=== PATIENT | female | born 1940 | race Caucasian/White ===

== ENCOUNTER → 2016-09-22 | Outpatient (CLI) | payer MEDICARE | LOC: GMAB 12:05 | PROVIDERS: ATTEND Family Medicine | DX: I10 Essential (primary) hypertension (principal) ==

== ENCOUNTER → 2016-09-23 | Outpatient (CLI) | payer MEDICARE ==
--- NOTE | 2016-09-23 15:08 | CT ---
EXAM DESCRIPTION: Neck CT. CLINICAL HISTORY: Unspecified sialoadenitis COMPARISON: None. TECHNIQUE: A volumetric CT with IV contrast was obtained and displayed in multiplanar reconstructions. FINDINGS: The pharynx and larynx are unremarkable with a widely patent airway. The thyroid and major salivary glands are within normal limits. No lymphadenopathy is identified by CT size criteria. Sinuses and mastoid air cells are clear. There is no aggressive bone lesion. There is considerable degenerative change about the dens and the anterior arch of C1. Mild degenerative change also noted at C5-6 and C6-7, but no spinal canal narrowing. IMPRESSION: No definitive evidence of sialoadenitis on today's study. No evidence of lymphadenopathy. Mild atherosclerotic disease, but no evidence of flow rate limiting narrowing. Electronically signed by: Trung Arriaga MD 09/23/2016 15:07
== END ==
LOC: CT 08:52
PROVIDERS: ATTEND Family Medicine
DX: K11.20 Sialoadenitis, unspecified (principal)

== ENCOUNTER → 2018-03-21 | Outpatient (CLI) | payer MEDICARE | LOC: GMAE 11:02 | PROVIDERS: ATTEND Family Medicine | DX: I10 Essential (primary) hypertension (principal) ==

== ENCOUNTER → 2019-03-28 | Outpatient (CLI) | payer MEDICARE | LOC: GMAE 10:50 | PROVIDERS: ATTEND Family Medicine | DX: E78.2 Mixed hyperlipidemia (principal); I10 Essential (primary) hypertension ==

== ENCOUNTER → 2020-07-16 | Outpatient (CLI) | payer MEDICARE | LOC: GMAE 11:09 | PROVIDERS: ATTEND Family Medicine | DX: I10 Essential (primary) hypertension (principal); E78.2 Mixed hyperlipidemia ==